=== PATIENT | female | born 1985 | race Caucasian/White ===

== ENCOUNTER 2023-06-20 07:33 | Emergency (ER) | payer OTHER, SELFPAY ==
[2023-06-20 07:36] VITALS: BP 117/79
--- NOTE | 2023-06-20 08:05 | ED.GENMED ---
History of Present Illness
General
Chief Complaint: Flank Pain
Source: patient
Time Seen by Provider: 06/20/23 07:50
Travel History
Have you had any contact with someone who has COVID-19?: No
Do you have any symptoms of coronavirus? Fever > 100 degrees, chills, cough, shortness of breath, sore throat, loss of taste or smell, muscle aches, or headache?: No
History of Present Illness
History of Present Illness:
37-year-old female with no significant past medical history presenting the emergency department for evaluation of right lower back/flank pain for about 10 days, today symptoms were worse and accompanied with urinary frequency and hematuria. Patient
saw her primary care physician about 8 days ago and was started on a course of Keflex after she was found to have microscopic hematuria. Patient's symptoms have been waxing and waning during this time and when symptoms did not improve on the Keflex
the patient's primary care recommended she follow-up with a urologist for which patient minute appointment but was unable to be seen until the end of June. Patient states today the pain worsened and seem to have more hematuria with urinary
frequency prompting her to come to the ER. She denies any fevers, chills, rigors, nausea, vomiting, bowel changes, vaginal bleeding or discharge. She did not take anything for pain prior to arrival and is declining anything for pain presently.
Social history was noncontributory for any cigarettes or tobacco. Family history also noncontributory.
Past History
Past History
ED Past Medical History: None
ED Past Surgical History: None
Social History
Tobacco: Non-smoker
Alcohol: Occasional
Drug: None
Personal:
Living: with family
Employment: Employed
Review of Systems
Review of Systems
All Other Systems: ROS reviewed and negative except as documented in HPI and ROS
Phy Exam
Physical Exam
Physical Exam:
GENERAL: Alert , in no apparent distress
EYE: clear conjunctiva b/l
HEAD: NCAT
ENT: o/p clr, mmm.
CARDIAC: Regular rate and rhythm .
LUNGS: Clear breath sounds bilaterally, no acute respiratory distress, no wheezes/rales/rhonchi
ABDOMEN: Soft, without focal tenderness, no r/g, mild right CVA tenderness, negative Hobbs sign, no tenderness at McBurney's point
NEUROLOGICAL: Alert and oriented
SKIN: Warm and dry, skin intact.
MUSCULOSKELETAL: well perfused.
PSYCH: Normal and appropriate interaction.
Scores
Heart Failure Risk
Heart Failure Risk Score: Not Applicable
Heart Score for Chest Pain Patients
STEMI patient?: Not applicable
Withdrawal Assessment of Alcohol
Withdrawal Assessment Completed?: Not applicable
Course
Orders/Labs/Results
Orders:
Orders
06/20/23 08:02
CT Abd/pel Without Iv Or Oral Urgent
Comment:
Reason For Exam: right flank pain, hematuria
Test Result ONCE
06/20/23 08:24
Basic Metabolic Panel Urgent
Complete Blood Count/With Diff Urgent
HCG, Serum Qualitative Screen Urgent
Urinalysis Reflex To Culture Urgent
Date Specimen was Collected: 06/20/23
Time Specimen was Collected: 08:21
Urine Microscopic Reflex Cult Urgent
Urine Culture Urgent
YOLANDE Source: U
Specimen Description:
Date Specimen was Collected: 06/20/23
Time Specimen was Collected: 08:21
Abnormal Lab Results
06/20/23
08:24
WBC 3.7 L 10^3/uL
(4.8-10.8)
RBC 4.10 L 10^6/uL
(4.20-5.40)
MCH 32.7 H pg
(27.0-31.0)
MPV 11.0 H fL
(7.4-10.4)
Absolute Lymphs (auto) 1.0 L 10^3/uL
(1.2-3.4)
Monocytes % 10.9 H %
(1.7-9.3)
Ur Occult Blood Reflex 4+ A
(Negative)
Leukocyte Esterase Rfl 1+ A
(Negative)
Urine RBC >100 A /HPF
(0-2)
Urine Bacteria (Reflex) Few A
(Negative)
Urine Albumin (Reflex) 1+ A
(Neg - Trace)
06/20/23 08:24
06/20/23 08:24
Vital Signs
Initial and Last Documented VS:
Initial Vital Signs
Temp Pulse Resp BP Pulse Ox
97.7 F 78 16 117/79 98
06/20/23 07:36 06/20/23 07:36 06/20/23 07:36 06/20/23 07:36 06/20/23 07:36
Last Documented Vital Signs
Temp Pulse Resp BP Pulse Ox
97.7 F 78 18 117/79 98
06/20/23 07:36 06/20/23 07:36 06/20/23 08:25 06/20/23 07:36 06/20/23 07:36
MDM/Problems Addressed
Differential Diagnosis Includes:
Renal/ureteral colic, cystitis, pyelonephritis, less concern for or [employer] related
MDM/Problems Addressed:
37-year-old female present emergency department for evaluation of little over 1 week of right-sided flank pain, has had microscopic hematuria on a previous urinalysis, now patient has blood-tinged urine with increasing urinary frequency and
worsening flank pain. I suspect renal/ureteral colic to be the most likely diagnosis. Labs including hCG were ordered, urinalysis sent, CT of the abdomen and pelvis ordered.
*Radiology
Radiology exam reviewed: radiology read reviewed
*Pulse Oximetry
Patient hypoxic: no
*Critical Care Note
Total Time (30-74mins, 75-104mins- exclusive of procedures): Not Applicable
Patient Management
Escalation/DeEscalation of care consider admission/obs:
Patient's labs reveal a mild leukopenia of unspecified etiology. Remaining labs unremarkable. Urinalysis does show 4+ blood, 1+ leukocytes and greater than [address] scan shows no evidence for renal or ureteral calculi. There is mild
asymmetric fullness of the right intrarenal collecting system. Mild to moderate colonic fecal matter and a 2-1/2 cm right ovarian cyst. Given patient's urinalysis findings I would like to start patient on a regimen of Bactrim. I did discuss with
her that Keflex should have potentially covered for any UTI but if for what ever reason this was resistant will hope that Bactrim would treat any other potential infection. Advised patient to still follow-up with urology and I provided her with
information for our urologist here at this facility. She is aware of return precautions to the emergency department including fevers or worsening pain. Patient expressed understanding and is otherwise stable for discharge home.
ED Attending Note
-
Portions of this chart may have been created with voice recognition software.� Occasional wrong word or��sound alike� substitutions may have occurred due to the inherent limitations of voice recognition software.
Discharge Plan
Departure
Patient Disposition: Home (Routine Discharge)
Date of Disposition: 06/20/23
Time of Disposition: 10:58
Patient with high blood pressure during this ER visit?: No
Discharge Problem:
UTI (urinary tract infection)
Instructions: Urinary Tract Infection, Adult (DC)
Prescriptions:
New
sulfamethoxazole-trimethoprim [Bactrim DS] 800-160 mg tablet
1 tab PO BID 10 Days Qty: 20 0RF
Referrals:
Tushar Vu MD [Family Provider] -
Kolton Garcia MD [Active] - (Urology)
Interventions
Interventions:
*General Assessment Last Done: 06/20/23 08:56
*ED COVID-19 Vaccine History Last Done: 06/20/23 07:36
*Nursing Disposition Last Done: 06/20/23 11:05
[facility]-Arygkg-Cgegnyheou Assessment Last Done: 06/20/23 08:56
ED-Female Genitourinary Assessment Last Done: 06/20/23 08:56
Discharge Date and Time
Discharge Date/Time: 06/20/23 11:06
[2023-06-20 08:22] VITALS: BMI 25.3
[2023-06-20 08:36] LABS: % Basophils 0.5 % (0-2); % Eosinophils 0.8 % (0-6); % Immature Granulocytes 0.5 % (0-0.5); % Lymphocytes 28.1 % (20.5-51.1); % Monocytes 10.9 % (1.7-9.3); % Neutrophils 59.2 % (42.2-75.2); Absolute Monocytes 0.4 10^3/uL (0.1-0.6); Absolute Neutrophils 2.2 10^3/uL (1.4-6.5); Hematocrit 37.4 % (37.0-47.0); Hemoglobin 13.4 g/dL (12.0-16.0); Mean Corp Hgb Conc. 35.8 g/dL (33.0-37.0); Mean Corpuscular Hgb 32.7 pg (27.0-31.0); Mean Corpuscular Volume 91.2 fL (81.0-99.0); Nucleated Red Blood Cells % 0 %; Platelet Count 170 10^3/uL (130-400); Red Cell Dist. Width 12.2 % (11.5-14.5); Urine Albumin 1+ (Neg - Trace); Urine Bilirubin Negative (Negative); Urine Character Slightly Cloudy (Clear); Urine Color Amber; Urine Glucose Negative (Negative); Urine Ketone Negative (Negative); Urine Leukocyte 1+ (Negative); Urine Nitrite Negative (Negative); Urine Occult Blood 4+ (Negative); Urine Urobilinogen Negative (Neg - 1+); Urine pH 6.5 (5.0-9.0); White Blood Cell Count 3.7 10^3/uL (4.8-10.8)
[2023-06-20 08:47] LABS: HCG, Serum Qualitative Screen Negative
[2023-06-20 08:52] LABS: Blood Urea Nitrogen 13 mg/dl (7-17); Calcium 9.3 mg/dl (8.4-10.2); Carbon Dioxide 25 mmol/L (22-30); Chloride 106 mmol/L (98-107); Estimated Creatinine Clearance 79 ml/min; Glucose 96 mg/dl (70-99); Potassium 3.9 mmol/L (3.5-5.1); Sodium 135 mmol/L (135-145); eGFR > 60.00
[2023-06-20 08:54] LABS: Urine Red Blood Cell >100 /HPF (0-2); Urine Squamous Cell >30 /LPF (Few)
[2023-06-20 08:56] LABS: Urine Bacteria Few (Negative)
== END 2023-06-20 11:06 | disposition home or self-care (01) ==
LOC: EMR 07:33
PROVIDERS: Physician Assistant Medical; EMERGENCY PHYSICIAN Emergency Medicine; FAMILY PHYSICIAN Internal Medicine
DX: N39.0 Urinary tract infection, site not specified (principal); N83.201 Unspecified ovarian cyst, right side
CPT/HCPCS: 99284; 74176; 80048; 81003; 81015; 84703; 85025; 87086

== ENCOUNTER → 2023-08-06 10:44 | Outpatient (REF) | payer OTHER, SELFPAY | LOC: HWRAD 10:44 | PROVIDERS: ATTENDING PHYSICIAN Obstetrics & Gynecology; FAMILY PHYSICIAN Internal Medicine | DX: N93.9 Abnormal uterine and vaginal bleeding, unspecified (principal); N83.201 Unspecified ovarian cyst, right side | CPT/HCPCS: 76830; 76856 ==